=== PATIENT | male | born 1960 | race Caucasian/White ===

== ENCOUNTER 2016-06-26 20:23 | Emergency (ER) | payer OTHER ==
[2016-06-26 20:49] VITALS: BMI 31.7
[2016-06-26] MEDS ORDERED: ASPIRIN 81 MG CHEWABLE TABLETS PO ONE (20:49)
[2016-06-26 21:14] LABS: BASOPHIL 0.4 % (0-2.0); EOSINOPHIL 0.3 % (0-4.5); MCH 31.6 pg (25.7-33.7); MCHC 34.1 g/dl (32.0-35.9); MEAN CELL VOLUME 92.8 fl (80-96); MEAN PLT VOLUME 9.6 fl (7.5-11.1); NEUTROPHILS 87.1 % (42.8-82.8); PLATELET COUNT 151 K/MM3 (134-434); WHITE BLOOD COUNT 11.3 K/mm3 (4.0-10.0)
[2016-06-26] MEDS ORDERED: ASPIRIN 81 MG CHEWABLE TABLETS ONE (21:16)
[2016-06-26 21:26] LABS: INR 1.26 (0.82-1.09); PROTHROMBIN TIME (PATIENT) 13.9 SEC (9.98-11.88)
--- NOTE | 2016-06-26 21:38 | PDOC ---
History of Present Illness - General History Source: Patient Exam Limitations: No Limitations - History of Present Illness Initial Comments: 06/26/16 22:12 The patient is a 55 year old male, with a significant past medical history of migraines, who presents to the emergency department with shortness of breath and left sided chest discomfort since approximately 7PM this evening. The patient states that he was walking outside when his symptoms began. He describes a sudden onset of shortness of breath, diaphoresis and left sided chest discomfort. The patient additionally reports a headache, which he describes as head pressure. The patient reports nausea in addition to one episode of nonbloody vomiting and diffuse abdominal pain. The patient denies fever, chills, diarrhea or dysuria. The patient denies any past cardiac history. The patients is at the bedside. Allergies: None reported. Past Surgical History: None reported. Social History: Non smoker. Reports occasional alcohol consumption (a couple beers per week). Denies drug use. <Helen Bueno - Last Filed: 06/26/16 22:25> <Alfa Kelly - Last Filed: 06/26/16 22:37> - General Chief Complaint: Chest Pain Stated Complaint: Shortness of Breath Time Seen by Provider: 06/26/16 20:39 Past History <Helen Bueno - Last Filed: 06/26/16 22:25> - Psycho/Social/Smoking Cessation Hx Suicidal Ideation: No Smoking History: Never smoked Have you smoked in the past 12 months: No Information on smoking cessation initiated: No Hx Alcohol Use: No Drug/Substance Use Hx: No <Alfa Kelly - Last Filed: 06/26/16 22:37> - Past Medical History Allergies/Adverse Reactions: Allergies Allergy/AdvReac Type Severity Reaction Status Date / Time No Known Allergies Allergy Verified 06/26/16 20:46 Home Medications: Ambulatory Orders NK [No Known Home Medication] 06/26/16 Review of Systems - Review of Systems Able to Perform ROS?: Yes Comments:: 06/26/16 21:40 CONSTITUTIONAL: Absent: Fever, Chills, Diaphoresis, Generalized Weakness, Malaise, Loss of Appetite HEENT: Absent: Rhinorrhea, Nasal Congestion, Throat Pain, Throat Swelling, Difficulty Swallowing, Mouth Swelling, Ear Pain, Eye Pain, Visual Changes CARDIOVASCULAR: Present: +Diaphoresis, Chest Pain Absent: Syncope, Palpitations, Irregular Heart Rate, Lightheadedness, Peripheral Edema RESPIRATORY: Present: +Shortness of Breath Absent: Cough, SOB with Exertion, Orthopnea, Wheezing, Stridor, Hemoptysis GASTROINTESTINAL: Present: +Nausea, Vomiting, Abdominal Pain Absent: Abdominal pain, Abdominal Distension, Nausea, Vomiting, Diarrhea, Constipation, Melena, Hematochezia GENITOURINARY: Absent: Dysuria, Frequency, Urgency, Hesitancy, Flank Pain, Genital Pain MUSCULOSKELETAL: Absent: Myalgia, Arthralgia, Joint Swelling, Back pain, Neck Pain SKIN: Absent: Rash, Itching, Pallor HEMATOLOGIC/IMMUNOLOGIC: Absent: Easy Bleeding, Easy Bruising, Lymphadenopathy, Frequent infections ENDOCRINE: Absent: Unexplained Weight Gain, Unexplained Weight Loss, Heat Intolerance, Cold Intolerance NEUROLOGIC: Present: +Headache Absent: Focal Weakness, Paresthesias, Vertigo, Lightheadedness, Unsteady Gait, Seizure, Mental Status Changes, Incontinence PSYCHIATRIC: Absent: Anxiety, Depression <[place] - Last Filed: 06/26/16 22:25> *Physical Exam - Vital Signs Last Vital Signs Temp Pulse Resp BP Pulse Ox 99.0 F 100 H 16 122/75 95 06/26/16 20:46 06/26/16 20:46 06/26/16 20:46 06/26/16 20:46 06/26/16 20:46 - Physical Exam Comments: 06/26/16 21:39 GENERAL: The patient is awake, alert, and fully oriented, in no acute distress. HEAD: Normal with no signs of trauma. EYES: Pupils equal, round and reactive to light, extraocular movements intact, sclera anicteric, conjunctiva clear. ENT: Ears normal, nares patent, oropharynx clear without exudates. Moist mucous membranes. NECK: Normal range of motion, supple without lymphadenopathy, JVD, or masses. LUNGS: Breath sounds equal, clear to auscultation bilaterally. No wheezes, and no crackles. HEART: Regular rate and rhythm, normal S1 and S2 without murmur, rub or gallop. ABDOMEN: Soft, nontender, normoactive bowel sounds. No guarding, no rebound. No masses. EXTREMITIES: Normal range of motion, no edema. No clubbing or cyanosis. No cords , erythema, or tenderness. NEUROLOGICAL: Cranial nerves II through XII grossly intact. Normal speech, normal gait. PSYCH: Normal mood, normal affect. SKIN: Warm, dry, normal turgor, no rashes or lesions noted. <Helen Bueno - Last Filed: 06/26/16 22:25> - Vital Signs Last Vital Signs Temp Pulse Resp BP Pulse Ox 99.0 F 100 H 16 122/75 95 06/26/16 20:46 06/26/16 20:46 06/26/16 20:46 06/26/16 20:46 06/26/16 20:46 <Alfa Kelly - Last Filed: 06/26/16 22:37> Heart Score/ECG Review - ECG Intrepretation Comment:: 06/26/16 21:36 Twelve-lead EKG shows sinus tachycardia at a rate of 106 bpm. The axis is normal. The intervals are normal. There is borderline LVH by voltage. There are no acute ST elevations or depressions. In comparison with prior EKG from 03/28/2009, there is no acute change. Impression: Sinus tachycardia, borderline LVH, otherwise normal EKG. <Alfa Kelly - Last Filed: 06/26/16 22:37> ED Treatment Course - LABORATORY CBC & Chemistry Diagram: 06/26/16 21:05 06/26/16 21:05 - ADDITIONAL ORDERS Additional order review: Laboratory Results 06/26/16 21:05 INR 1.26 H 06/26/16 21:05 RBC 5.38 MCV 92.8 MCHC 34.1 RDW 15.0 MPV 9.6 Neutrophils % 87.1 H Lymphocytes % 6.5 L Monocytes % 5.7 Eosinophils % 0.3 Basophils % 0.4 - Medications Given in the ED: ED Medications Discontinued Medications Generic Name Dose Route Start Last Admin Trade Name Freq PRN Reason Stop Dose Admin Aspirin 162 mg 06/26/16 20:49 06/26/16 21:20 Asa - PO 06/26/16 20:50 162 mg ONCE ONE Administration <Helen Bueno - Last Filed: 06/26/16 22:25> - LABORATORY CBC & Chemistry Diagram: 06/26/16 21:05 06/26/16 21:05 - ADDITIONAL ORDERS Additional order review: Laboratory Results 06/26/16 21:05 INR 1.26 H 06/26/16 21:05 RBC 5.38 MCV 92.8 MCHC 34.1 RDW 15.0 MPV 9.6 Neutrophils % 87.1 H Lymphocytes % 6.5 L Monocytes % 5.7 Eosinophils % 0.3 Basophils % 0.4 - RADIOLOGY Radiology Studies Ordered: Category Date Time Status CHEST X-RAY PORTABLE* [RAD] Stat Radiology 06/26/16 20:50 Completed - Medications Given in the ED: ED Medications Discontinued Medications Generic Name Dose Route Start Last Admin Trade Name Lindsey PRN Reason Stop Dose Admin Aspirin 162 mg 06/26/16 20:49 06/26/16 21:20 Asa - PO 06/26/16 20:50 162 mg ONCE ONE Administration <Alfa Kelly - Last Filed: 06/26/16 22:37> Medical Decision Making - Medical Decision Making 06/26/16 22:25 EXAM: RAD/CHEST X-RAY PORTABLE Reviewed By: Dr. Epifanio Jordan IMPRESSION: No significant interval change or acute lung disease is present. <Helen Bueno - Last Filed: 06/26/16 22:25> - Medical Decision Making 06/26/16 21:51 Patient is a 55-year-old man who developed onset at 7 PM tonight of shortness of breath while walking. He also had some associated left chest discomfort. He felt some pressure in his head and then he vomited. He also has some abdominal discomfort. On examination, his lungs are clear and his heart sounds are normal. Twelve-lead EKG shows sinus tachycardia with borderline LVH. He has no positive cardiac risk factors. Differential diagnosis includes acute coronary syndrome, versus other cause of acute chest pain and shortness of breath. The pain is somewhat pleuritic. Patient will undergo CT angiogram to rule out pulmonary embolism. The heart risk score is 3 points given a suspicious history in a patient in his 50s, with no other cardiac risk factors and a non-ischemic EKG. 06/26/16 22:[address] Everette Babb pending CTA, pending cardiac enzymes, pending repeat cardiac enzymes. The scribe's documentation has been prepared under my direction and personally reviewed by me in its entirety. I have confirmed that the note above accurately reflects all work, treatment, procedures, and medical decision- making performed by me. <Alfa Kelly - Last Filed: 06/26/16 22:37> *DC/Admit/Observation/Transfer - Attestations Scribe Attestion: 06/26/16 21:39 Documentation prepared by Helen Bueno, acting as medical photographer for Alfa Kelly MD. <Helen Bueno - Last Filed: 06/26/16 22:25> <Alfa Kelly - Last Filed: 06/26/16 22:37> Diagnosis at time of Disposition: Acute chest pain - Referrals Referrals: Sahil Cordero MD [Primary Care Provider] -
[2016-06-26 21:57] LABS: ALBUMIN 3.3 g/dl (3.4-5.0); ANION GAP 13 (8-16); BILIRUBIN,TOTAL 1.3 mg/dL (0.2-1.0); CALCIUM 8.8 mg/dL (8.5-10.1); CO2 25 mmol/L (21-32); COCKROFT - GAULT 126.74; CREATININE 0.8 mg/dL (0.7-1.3); GLUCOSE,RANDOM 142 mg/dL (74-106); MAGNESIUM 1.8 mg/dL (1.8-2.4); SGOT/AST 52 U/L (15-37); SGPT/ALT 35 U/L (12-78); TOT PROT 7.2 g/dl (6.4-8.2)
[2016-06-26 21:59] LABS: ALK PHOS 162 U/L (45-117); TROPONIN I < 0.02 ng/ml (0.00-0.05)
[2016-06-27] MEDS ORDERED: ONDANSETRON 4 MG/2 ML VIAL IVPB ONE (00:21)
[2016-06-27] MEDS ORDERED: RANITIDINE HCL 150 MG TABLET (FP) PO ONE (00:21)
[2016-06-27] MEDS ORDERED: ONDANSETRON 4 MG/2 ML VIAL ONE (01:12)
[2016-06-27] MEDS ORDERED: RANITIDINE HCL 150 MG TABLET (FP) ONE (01:12)
--- NOTE | 2016-06-27 01:15 | PDOC ---
*Physical Exam - Vital Signs Last Vital Signs Temp Pulse Resp BP Pulse Ox 99.0 F 100 H 16 122/75 95 06/26/16 20:46 06/26/16 20:46 06/26/16 20:46 06/26/16 20:46 06/26/16 20:46 <Helen Bueno - Last Filed: 06/27/16 01:35> - Vital Signs Last Vital Signs Temp Pulse Resp BP Pulse Ox 99.0 F 100 H 16 122/75 95 06/26/16 20:46 06/26/16 20:46 06/26/16 20:46 06/26/16 20:46 06/26/16 20:46 <Everette Babb - Last Filed: 06/27/16 02:13> ED Treatment Course - LABORATORY CBC & Chemistry Diagram: 06/26/16 21:05 06/26/16 21:05 - ADDITIONAL ORDERS Additional order review: Laboratory Results 06/26/16 06/26/16 06/26/16 21:05 21:05 21:05 INR 1.26 H Sodium 137 Potassium 3.8 Chloride 99 Carbon Dioxide 25 Anion Gap 13 BUN 8 Creatinine 0.8 Creat Clearance w eGFR > 60 Random Glucose 142 H Calcium 8.8 Magnesium 1.8 Total Bilirubin 1.3 H AST 52 H ALT 35 Alkaline Phosphatase 162 H Creatine Kinase 170 Creatine Kinase Index 1.6 CK-MB (CK-2) 2.759 CK-MB (CK-2) Rel Index Cancelled Troponin I < 0.02 Total Protein 7.2 Albumin 3.3 L 06/26/16 21:05 RBC 5.38 MCV 92.8 MCHC 34.1 RDW 15.0 MPV 9.6 Neutrophils % 87.1 H Lymphocytes % 6.5 L Monocytes % 5.7 Eosinophils % 0.3 Basophils % 0.4 - Medications Given in the ED: ED Medications Discontinued Medications Generic Name Dose Route Start Last Admin Trade Name Freq PRN Reason Stop Dose Admin Aspirin 162 mg 06/26/16 20:49 06/26/16 21:20 Asa - PO 06/26/16 20:50 162 mg ONCE ONE Administration Ondansetron HCl 4 mg 06/27/16 00:21 06/27/16 01:16 Zofran Injection IVPB 06/27/16 00:22 4 mg ONCE ONE Administration Ranitidine HCl 150 mg 06/27/16 00:21 06/27/16 01:16 Zantac - PO 06/27/16 00:22 150 mg ONCE ONE Administration <Helen Bueno - Last Filed: 06/27/16 01:35> - LABORATORY CBC & Chemistry Diagram: 06/26/16 21:05 06/26/16 21:05 - ADDITIONAL ORDERS Additional order review: Laboratory Results 06/26/16 06/26/16 06/26/16 21:05 21:05 21:05 INR 1.26 H Sodium 137 Potassium 3.8 Chloride 99 Carbon Dioxide 25 Anion Gap 13 BUN 8 Creatinine 0.8 Creat Clearance w eGFR > 60 Random Glucose 142 H Calcium 8.8 Magnesium 1.8 Total Bilirubin 1.3 H AST 52 H ALT 35 Alkaline Phosphatase 162 H Creatine Kinase 170 Creatine Kinase Index 1.6 CK-MB (CK-2) 2.759 CK-MB (CK-2) Rel Index Cancelled Troponin I < 0.02 Total Protein 7.2 Albumin 3.3 L 06/26/16 21:05 RBC 5.38 MCV 92.8 MCHC 34.1 RDW 15.0 MPV 9.6 Neutrophils % 87.1 H Lymphocytes % 6.5 L Monocytes % 5.7 Eosinophils % 0.3 Basophils % 0.4 - Medications Given in the ED: ED Medications Discontinued Medications Generic Name Dose Route Start Last Admin Trade Name Freq PRN Reason Stop Dose Admin Aspirin 162 mg 06/26/16 20:49 06/26/16 21:20 Asa - PO 06/26/16 20:50 162 mg ONCE ONE Administration <Everette Babb - Last Filed: 06/27/16 02:13> Medical Decision Making - Medical Decision Making 06/27/16 01:36 EXAM: CT/CHEST CTA Reviewed By: Dr. Dolly Orta IMPRESSION: No pulmonary embolism. No aortic dissection or aneurysm. No pneumonia or pleural effusions. Cirrhotic liver, gastroesophageal varices extending into gastric fundus, minimal splenomegaly and small ascites, compatible with portal hypertension. Subcentimeter hypodensity liver dome, too small to characterize. <Helen Bueno - Last Filed: 06/27/16 01:35> - Medical Decision Making 06/27/16 01:13 Pt signed out to me by Dr. Kelly. 55 year old male p/w chest pain. Initial troponin is negative. ECG with sinus tachy but no acute ischemic changes. CTA demonstrates no PE or aortic dissection or aneurysm. However, according to CT, the patient has a cirrhotic liver, gastroesophageal varices, and minimal splnomegaly and small ascites, compatible with portal hypertension. 06/27/16 02:11 I had spoken in detail regarding the results to the patient. The patient reports that he has a history of fatty liver but no known history of cirrhotic liver. At this time, he denies any hematemesis, coffee ground emesis, dark stools. The patient reports feeling much better. i had explained to him that he needs to take a copy of the results of the CT scan and bring it back to Dr. Morgan. The patient verbalizes understanding and agrees with plan. 2nd troponin ordered for 2:30 am. If 2nd trop is negative, patient can follow up with his PMD and cardiology for outpatient management. Case signed out to Dr. Pope for further management and disposition. <Everette Babb - Last Filed: 06/27/16 02:13> *DC/Admit/Observation/Transfer - Attestations Scribe Attestion: 06/27/16 01:35 Documentation prepared by Helen Bueno, acting as certified medical coder for Everette Babb MD. <Helen Bueno - Last Filed: 06/27/16 01:35> <Everette Babb - Last Filed: 06/27/16 02:13> Diagnosis at time of Disposition: Acute chest pain Hepatic cirrhosis Qualifiers: Hepatic cirrhosis type: other cirrhosis Qualified Code(s): K74.69 - Other cirrhosis of liver - Discharge Dispostion Condition at time of disposition: Stable - Referrals Referrals: Sahil Cordero MD [Primary Care Provider] - Koko Story MD [Staff Physician] - - Patient Instructions Printed Discharge Instructions: DI for Chest Pain, DI for Cirrhosis Additional Instructions: Please take a copy of the CT scan to your doctor. It looks like that you have liver cirrhosis and varices. It is very important that you take a copy of the CT scan and discuss. Please also make an appointment with a [facility] and with your primary care physician. - Post Discharge Activity
[2016-06-27] MEDS ORDERED: ACETYLCYSTEINE 20% 200MG/ML 30ML VIAL *FOR INJECTION USE ONLY IVPB ONE ×3 (01:25→01:27)
[2016-06-27 03:16] LABS: TROPONIN I < 0.02 ng/ml (0.00-0.05)
[2016-06-27 04:03] VITALS: BP 120/70; PULSE 88; TEMP 97.6
--- NOTE | 2016-06-27 09:59 | EKG ---
Test Reason : Blood Pressure : / mmHG Vent. Rate : 106 BPM Atrial Rate : 106 BPM P-R Int : 146 ms QRS Dur : 082 ms QT Int : 364 ms P-R-T Axes : 046 -06 026 degrees QTc Int : 483 ms SINUS TACHYCARDIA MINIMAL VOLTAGE CRITERIA FOR LVH, MAY BE NORMAL VARIANT WHEN COMPARED WITH ECG OF 28-MAR-2009 14:07, NO SIGNIFICANT CHANGE WAS FOUND Confirmed by KEN SNYDER MD ([id number]) on 06/27/2016 9:58:49 AM Referred By: Confirmed By:KEN SNYDER MD
[2016-06-27 11:23] LABS: ALBUMIN 3.5 g/dl (3.4-5.0); ALK PHOS 152 U/L (45-117); ANION GAP 13 (8-16); BILIRUBIN,TOTAL 1.7 mg/dL (0.2-1.0); CALCIUM 8.8 mg/dL (8.5-10.1); CO2 23 mmol/L (21-32); COCKROFT - GAULT 101.39; GLUCOSE,RANDOM 145 mg/dL (74-106); SGOT/AST 53 U/L (15-37); SGPT/ALT 38 U/L (12-78); TOT PROT 7.6 g/dl (6.4-8.2)
== END 2016-06-27 04:06 | disposition home or self-care (01) ==
LOC: JER 20:23
PROC: 3E033GC Introduction of Other Therapeutic Substance into Peripheral Vein, Percutaneous Approach (ICD-10-PCS; principal; 2016-06-26)
DX: R07.89 Other chest pain (principal); K74.69 Other cirrhosis of liver
CPT/HCPCS: 36415; 71010-TC; 71275-TC; 80053; 82550; 82553; 83735; 84484; 85025; 85610; 93005; 93010; 99284-25

== ENCOUNTER 2020-10-30 16:28 | Emergency (ER) | payer OTHER ==
[2020-10-30 16:38] VITALS: TEMP 97; BMI 36.8
[2020-10-30 18:52] LABS: BASO % 0.6 % (0-2.0); EOS % 1.8 % (0-4.5); HEMOGLOBIN 13.3 GM/dL (11.7-16.9); LYMPH % 10.6 % (8-40); MCH 37.9 pg (25.7-33.7); MEAN CELL VOLUME 108.4 fl (80-96); MEAN PLT VOLUME 10.1 fl (7.5-11.1); MONO % 16.4 % (3.8-10.2); NEUT % 70.6 % (42.8-82.8); PLATELET COUNT 98 10^3/uL (134-434); WHITE BLOOD COUNT 7.2 K/mm3 (4.0-10.0)
[2020-10-30 18:56] LABS: INR 1.59 (0.83-1.09)
[2020-10-30 18:59] LABS: ACTIVATED PTT 34.8 SECONDS (25.2-36.5); CHLORIDE 109 mmol/L (98-107); SODIUM 140 mmol/L (136-145)
[2020-10-30 19:02] LABS: CALCIUM 8.1 mg/dL (8.5-10.1)
[2020-10-30 19:03] LABS: ALBUMIN 1.9 g/dl (3.4-5.0); ANION GAP 8 MMOL/L (8-16); BLOOD UREA NITROGEN 20.8 mg/dL (7-18); CO2 23 mmol/L (21-32); GLUCOSE,RANDOM 111 mg/dL (74-106); LIPASE 718 U/L (73-393)
[2020-10-30 19:05] LABS: CREATININE 1.1 mg/dL (0.55-1.3); SGOT/AST 59 U/L (15-37); SGPT/ALT 30 U/L (13-61)
[2020-10-30 19:07] LABS: BILIRUBIN,TOTAL 4.3 mg/dL (0.2-1)
[2020-10-30 19:08] LABS: ALK PHOS 330 U/L (45-117)
[2020-10-30 22:22] LABS: ANISOCYTOSIS 0; MACROCYTOSIS 1+; PLATELET ESTIMATE DECREASED
[2020-10-30 23:07] VITALS: BP 119/89; PULSE 89
== END 2020-10-30 23:08 | disposition short-term general hospital (02) ==
LOC: JER 16:28
DX: K74.60 Unspecified cirrhosis of liver (principal); R17 Unspecified jaundice; R14.0 Abdominal distension (gaseous)
CPT/HCPCS: 36415; 74177-TC; 80053; 80307; 82140; 83690; 85025; 85610; 85730; 86705; 86706; 86707; 86708; 87340; 87350; 87517; 87522; 93005; 93010; 99285-25; C9803; U0003; U0005

== ENCOUNTER 2024-09-01 10:44 | Emergency (ER) | payer OTHER ==
[2024-09-01 11:04] VITALS: RESP 18; TEMP 98.1
[2024-09-01] MEDS ORDERED: ACETAMINOPHEN 500 MG TABLET (FP) ONE (11:35)
[2024-09-01] MEDS ORDERED: LIDOCAINE 4% PATCH TP ONE (11:35)
[2024-09-01] MEDS: ACETAMINOPHEN 500 MG TABLET (FP) PO ONE (11:58)
[2024-09-01] MEDS: LIDOCAINE 5% TOPICAL PATCH TP ONE (11:58)
[2024-09-01 12:30] VITALS: BP 134/77; PULSE 77
[2024-09-01] MEDS ORDERED: LIDOCAINE PATCH REMOVAL MC SCH (22:00)
== END 2024-09-01 15:06 | disposition home or self-care (01) ==
LOC: JER 10:44
DX: S50.11XA Contusion of right forearm, initial encounter (principal); S60.211A Contusion of right wrist, initial encounter; M25.511 Pain in right shoulder; R10.9 Unspecified abdominal pain; M54.50 Low back pain, unspecified; R00.0 Tachycardia, unspecified; V49.40XA Driver injured in collision with unspecified motor vehicles in traffic accident, initial encounter; Y92.410 Unspecified street and highway as the place of occurrence of the external cause
CPT/HCPCS: 71046-TC-FY; 73030-TC-RT-FY; 73110-TC-RT-FY; 73130-TC-RT-FY; 99284-25